=== PATIENT | male | born 1975 | race Hispanic/Latino ===

== ENCOUNTER 2017-12-08 13:37 | Emergency (ER) | payer BC ==
[2017-12-08 13:42] VITALS: BP 117/75
--- NOTE | 2017-12-08 13:50 | Emergency Department Report ---
Blank Doc - Documentation Documentation: Patient is a 42-year-old male who has a history of factor V Leiden syndrome is had multiple DVTs who is well controlled as long as he is on his Coumadin. Patient ran out of Coumadin 5 Days ago and has not had a refill. Patient is complaining of 2-3 days of left lower extremity swelling. Patient denies any chest pain shortness of breath fevers chills at this time. Patient will undergo ultrasou Doppler to rule out acute DVT. Caty
[2017-12-08 15:27] LABS: INR 1.62 (0.87-1.13)
[2017-12-08] MEDS ORDERED: LOVENOX SUB-Q ONE (15:32)
--- NOTE | 2017-12-08 15:33 | Emergency Department Report ---
ED Extremity Problem HPI - General Chief complaint: Extremity Injury, Lower Stated complaint: SUPERFICIAL CLOT IN LEFT LEG Time Seen by Provider: 12/08/17 13:42 Source: patient Mode of arrival: Ambulatory Limitations: No Limitations - History of Present Illness Initial comments: Patient is a 42-year-old male who has a history of factor V Leiden syndrome is had multiple DVTs who is well controlled as long as he is on his Coumadin. Patient ran out of Coumadin 5 Days ago and has not had a refill. Patient is complaining of 2-3 days of left lower extremity swelling. Patient denies any chest pain shortness of breath fevers chills at this time. - Related Data Previous Rx's Medication Instructions Recorded Last Taken Type Acetaminophen [Acetaminophen TAB] 650 mg PO Q6H PRN #20 tablet 10/19/16 Unknown Rx Butalb/Acetamin/Caff 50-325-40 1 tab PO Q4H PRN #20 tablet 10/19/16 Unknown Rx [Fioricet] Doxycycline [Vibramycin CAP] 100 mg PO BID #20 capsule 10/19/16 Unknown Rx Famotidine [Pepcid] 20 mg PO BID #20 tablet 10/19/16 Unknown Rx Metoclopramide [Reglan TAB] 10 mg PO TID PRN #20 tab 10/19/16 Unknown Rx Enoxaparin [Lovenox] 70 mg SUB-Q BID #14 syringe 12/08/17 Unknown Rx HYDROcodone/APAP 7.5-325 [Bishop 1 each PO Q8HR PRN #15 tablet 12/08/17 Unknown Rx 7.5/325] Warfarin [Coumadin] 15 mg PO DAILY 30 Days tablet 12/08/17 Unknown Rx Allergies Allergy/AdvReac Type Severity Reaction Status Date / Time No Known Allergies Allergy Verified 04/25/14 13:13 ED Review of Systems ROS: Stated complaint: SUPERFICIAL CLOT IN LEFT LEG Other details as noted in HPI Comment: All other systems reviewed and negative ED Past Medical Hx - Past Medical History Hx Congestive Heart Failure: No Hx Diabetes: No Hx Deep Vein Thrombosis: Yes Hx Asthma: No Hx COPD: No Additional medical history: protein S deficiency, PE - Surgical History Additional Surgical History: left collar bone surgery x2 - Social History Smoking Status: Current Every Day Smoker Substance Use Type: None - Medications Home Medications: Home Medications Medication Instructions Recorded Confirmed Last Taken Type Acetaminophen [Acetaminophen TAB] 650 mg PO Q6H PRN #20 tablet 10/19/16 Unknown Rx Butalb/Acetamin/Caff 50-325-40 1 tab PO Q4H PRN #20 tablet 10/19/16 Unknown Rx [Fioricet] Doxycycline [Vibramycin CAP] 100 mg PO BID #20 capsule 10/19/16 Unknown Rx Famotidine [Pepcid] 20 mg PO BID #20 tablet 10/19/16 Unknown Rx Metoclopramide [Reglan TAB] 10 mg PO TID PRN #20 tab 10/19/16 Unknown Rx Enoxaparin [Lovenox] 70 mg SUB-Q BID #14 syringe 12/08/17 Unknown Rx HYDROcodone/APAP 7.5-325 [Bishop 1 each PO Q8HR PRN #15 tablet 12/08/17 Unknown Rx 7.5/325] Warfarin [Coumadin] 15 mg PO DAILY 30 Days tablet 12/08/17 Unknown Rx ED Physical Exam - General Limitations: No Limitations General appearance: alert, in no apparent distress - Head Head exam: Present: atraumatic, normocephalic - Eye Eye exam: Present: normal appearance - ENT ENT exam: Present: mucous membranes moist - Neck Neck exam: Present: normal inspection - Respiratory Respiratory exam: Present: normal lung sounds bilaterally. Absent: respiratory distress, wheezes, rales, rhonchi - Cardiovascular Cardiovascular Exam: Present: regular rate, normal rhythm. Absent: systolic murmur, diastolic murmur, rubs, gallop - GI/Abdominal GI/Abdominal exam: Present: soft, normal bowel sounds. Absent: distended, tenderness, guarding, rebound - Rectal Rectal exam: Present: deferred - Extremities Exam Extremities exam: Present: normal inspection, calf tenderness (patient has some left lower extremity calf tenderness was some streaking erythema extending from the posterior calf through the posterior knee and posterior thigh.), other - Back Exam Back exam: Present: normal inspection - Neurological Exam Neurological exam: Present: alert, oriented X3 - Psychiatric Psychiatric exam: Present: normal affect, normal mood - Skin Skin exam: Present: warm, dry, intact, normal color. Absent: rash ED Course Vital Signs 12/08/17 13:40 Temperature 98.7 F Pulse Rate 81 Respiratory 18 Rate Blood Pressure 117/75 O2 Sat by Pulse 97 Oximetry ED Medical Decision Making - Lab Data Lab Results 12/08/17 Range/Units 15:00 PT 20.2 H (12.2-14.9) Sec. INR 1.62 H (0.87-1.13) - Radiology Data ARAM PRESLEY Male : 1975 [facility]# [id number] 12/08/17 14:39 - Radiology Dept. Note by MILIND ARMASVladislav [facility] [place] Num: [id number] : 1975 Patient Age: 42 VASCULAR LAB.PRELIMINARY REPORT. LLE VENOUS DUPLEX DONE . EVIDENCE OF ACUTE DVT IN THE LT.PTV AT PROXIMAL CALF. 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 SVT NOTED IN THE LT.GASTROCNEMIUS VEINS . INFORMED AT 1442. Initialized on 12/08/17 14:39 - END OF NOTE - Medical Decision Making Patient actually on further discussion states that he was off his Coumadin for 5 days however he is back on it for the last 6 days and was hoping that he was subtherapeutic. Patient was severed through subtherapeutic with an INR however. Patient states that he has taken Lovenox in the past symmetric that bridging with Lovenox would be ideal. The patient takes 15 mg of Coumadin daily. Patient is to take 20 mg today and the resume his 15 mg times INR checked next week. Critical care attestation.: If time is entered above; I have spent that time in minutes in the direct care of this critically ill patient, excluding procedure time. ED Disposition Clinical Impression: Acute DVT of left tibial vein Disposition: - TO HOME OR SELFCARE Is pt being admited?: No Does the pt Need Aspirin: No Condition: Stable Prescriptions: Enoxaparin [Lovenox] 70 mg SUB-Q BID #14 syringe HYDROcodone/APAP 7.5-325 [Bishop 7.5/325] 1 each PO Q8HR PRN #15 tablet PRN Reason: Pain Warfarin [Coumadin] 15 mg PO DAILY 30 Days tablet Referrals: PRIMARY CARE, [Primary Care Provider] - 3-5 Days
--- NOTE | 2017-12-11 14:50 | Vascular Lab Report ---
LOWER EXTREMITY VENOUS DUPLEX: REASON FOR EXAM: Pain and swelling of the lower extremities. COMMENTS ON THE RIGHT: All veins visualized are freely compressible without evidence of internal echogenicity. Flow is spontaneous and phasic throughout. COMMENTS ON THE LEFT: Acute DVT is seen in the proximal left posterior tibial vein and a gastrocnemius vein. Chronic partially occluding thrombus is seen in the popliteal and superficial femoral vein. The remaining veins visualized are freely compressible without evidence of internal echogenicity. Spontaneous and phasic flow is absent proximally. IMPRESSION: Acute DVT in the left posterior tibial vein and an adjacent gastrocnemius vein. Partially occluding chronic deep venous thrombus in the superficial femoral vein and the popliteal on the left.
== END 2017-12-08 16:31 | disposition home or self-care (01) ==
LOC: ED 13:37
DX: I82.442 Acute embolism and thrombosis of left tibial vein (principal); F17.200 Nicotine dependence, unspecified, uncomplicated; Z86.711 Personal history of pulmonary embolism; Z98.890 Other specified postprocedural states
CPT/HCPCS: 36415; 85610; 93971; 96372; 99284; J1650